=== PATIENT | female | born 1995 | race Caucasian/White ===

== ENCOUNTER 2018-06-14 05:05 | Emergency (ER) | payer OTHER ==
[2018-06-14 05:10] VITALS: BP 125/68
[2018-06-14] MEDS ORDERED: GABAPENTIN 100 MG CAPSULE PO ONE (07:06)
--- NOTE | 2018-06-14 07:10 | ER Document Report ---
ED General - General Chief Complaint: Leg Pain Stated Complaint: LEG KNEE PAIN Time Seen by Provider: 06/14/18 06:36 - HPI Patient complains to provider of: Left leg left knee pain numbness Notes: Patient coming in for the last 4 days left leg pain left knee pain and numbness. Patient is recently to the area from [place]. Patient denies any swelling of the leg. Patient states intermittent pain and numbness. Patient states she does have a history of pelvic fracture unaware of the radius fracture states approximately 2 years ago. Patient states since that time continues have pain. Patient denies any recent trauma denies any falls denies any indices. Patient also denies any fever chills nausea by diarrhea. Denies any new physical activity. Patient otherwise resting comfortably denies any past medical history denies taking medications for pain control. Past Medical History - Social History Smoking Status: Never Smoker Family History: Reviewed & Not Pertinent Patient has suicidal ideation: No Patient has homicidal ideation: No Renal/ Medical History: Denies: Hx Peritoneal Dialysis Review of Systems - Review of Systems Constitutional: No symptoms reported EENT: No symptoms reported Cardiovascular: No symptoms reported Respiratory: No symptoms reported Gastrointestinal: No symptoms reported Genitourinary: No symptoms reported Female Genitourinary: No symptoms reported Musculoskeletal: Other - Left leg pain Skin: No symptoms reported Hematologic/Lymphatic: No symptoms reported Neurological/Psychological: No symptoms reported -: Yes All other systems reviewed and negative Physical Exam - Vital signs Vitals: Temp Pulse Resp BP Pulse Ox 98.0 F 88 18 125/68 100 06/14/18 05:09 06/14/18 05:09 06/14/18 05:09 06/14/18 05:09 06/14/18 05:09 Interpretation: Normal - General General appearance: Appears well, Alert - HEENT Head: Normocephalic, Atraumatic Eyes: Normal Pupils: PERRL - Respiratory Respiratory status: No respiratory distress Chest status: Nontender Breath sounds: Normal Chest palpation: Normal - Cardiovascular Rhythm: Regular Heart sounds: Normal auscultation Murmur: No - Abdominal Inspection: Normal Distension: No distension Bowel sounds: Normal Tenderness: Nontender Organomegaly: No organomegaly - Back Back: Normal, Nontender - Extremities General upper extremity: Normal inspection, Nontender, Normal color, Normal ROM , Normal temperature, Other - Patient able to lift her leg straight in the air from the left side. This was done actively. Deep tendon reflexes are intact bilaterally of the patella. General lower extremity: Normal inspection, Nontender, Normal color, Normal ROM , Normal temperature, Normal weight bearing. No: Tae's sign - Neurological Neuro grossly intact: Yes Cognition: Normal Orientation: AAOx4 Rosa Coma Scale Eye Opening: Spontaneous Rosa Coma Scale Verbal: Oriented Rosa Coma Scale Motor: Obeys Commands Rosa Coma Scale Total: 15 Speech: Normal Motor strength normal: LUE, RUE, LLE, RLE Sensory: Normal - Psychological Associated symptoms: Normal affect, Normal mood - Skin Skin Temperature: Warm Skin Moisture: Dry Skin Color: Normal Course - Re-evaluation Re-evalutation: 06/14/18 14:09 No clear etiology for the patient's symptoms. No traumatic findings. More likely muscle skeletal in nature. Recommended the patient follow-up with primary care provider for specific testing possible MRI or EMG testing. Patient states understanding. Patient agrees Tylenol Motrin also Ultram therapy for back pain. Patient is to return to the ER if any symptoms worsen - Vital Signs Vital signs: Temp Pulse Resp BP Pulse Ox 98.0 F 88 18 125/68 100 06/14/18 05:09 06/14/18 05:09 06/14/18 05:09 06/14/18 05:09 06/14/18 05:09 Discharge - Discharge Clinical Impression: Leg pain Qualifiers: Laterality: left Qualified Code(s): M79.605 - Pain in left leg Disposition: HOME, SELF-CARE Instructions: Family Physicians / Practices, Leg Pain Nonspecific ([facility]), Oral Narcotic Medication ([facility]) Additional Instructions: Your evaluation does not reveal any emergent criteria for your leg pain. I will highly recommend following up with 1 of the family care physicians provided. Do believe he will need some further testing specialized testing such as MRI or EMG to further evaluate your leg pain. Return to ER symptoms worsen or if you develop a fever greater than 101. Prescriptions: Ibuprofen [Motrin 600 mg Tablet] 600 mg PO Q8HP PRN #21 tablet PRN Reason: Gabapentin [Neurontin 100 mg Capsule] 100 mg PO Q12 #60 capsule Tramadol HCl [Ultram 50 mg Tablet] 50 mg PO ASDIR PRN #14 tablet PRN Reason: Referrals: MATTHEW HOWE MD [Primary Care Provider] - Follow up as needed
== END 2018-06-14 07:20 | disposition home or self-care (01) ==
LOC: ER 05:05
DX: M79.605 Pain in left leg (principal); R20.0 Anesthesia of skin
CPT/HCPCS: 99283

== ENCOUNTER 2018-10-10 12:46 | Emergency (ER) | payer OTHER ==
--- NOTE | 2018-10-10 13:00 | ER Document Report ---
ED Medical Screen (RME) - General Chief Complaint: Abdominal Cramping Stated Complaint: FALL/ABDOMINAL PAIN Time Seen by Provider: 10/10/18 12:58 Primary Care Provider: MATTHEW HOWE MD [Primary Care Provider] - Follow up as needed Mode of Arrival: Ambulatory Information source: Patient TRAVEL OUTSIDE OF THE [place] IN LAST 30 DAYS: No - HPI Patient complains to provider of: fall; abd pain Onset: Just prior to arrival - pt. is G1, approx 7 weeks along who fell in the shower earlier this am. Has had some abd pain but no vaginal bleeding - Related Data Allergies/Adverse Reactions: cetirizine [From Zyrtec] Allergy (Verified 10/10/18 12:48) Past Medical History Renal/ Medical History: Denies: Hx Peritoneal Dialysis Physical Exam - Vital signs Vitals: Temp Pulse Resp BP Pulse Ox 98.9 F 95 16 133/73 H 100 10/10/18 12:52 10/10/18 12:52 10/10/18 12:52 10/10/18 12:52 10/10/18 12:52 Course - Vital Signs Vital signs: Temp Pulse Resp BP Pulse Ox 98.9 F 95 16 133/73 H 100 10/10/18 12:52 10/10/18 12:52 10/10/18 12:52 10/10/18 12:52 10/10/18 12:52 Doctor's Discharge - Discharge Referrals: MATTHEW HOWE MD [Primary Care Provider] - Follow up as needed
--- NOTE | 2018-10-10 13:47 | RADIOLOGY REPORT (SQ) ---
EXAM DESCRIPTION: U/S OB TRANSVAG W/DOPPLER COMPLETED DATE/TIME: 10/10/2018 1:30 pm REASON FOR STUDY: fall; abd. pain COMPARISON: None. TECHNIQUE: Transvaginal static and realtime grayscale images acquired of the pelvis. Additional tyler cted spectral and color Doppler images recorded. All images stored on PACs. CLINICAL DATES: 6 weeks 4 days LIMITATIONS: None. FINDINGS: FETUS: Single Living intrauterine . ULTRASOUND EGA: 6 weeks 5 days. ULTRASOUND RAMILA: 05/31/2019. EFW: Not applicable less than 20 weeks. CRL: 0.8 cm consistent with gestational age 6 weeks 5 days. FHR: 114 beats per minute. PLACENTA: Not yet developed due to early gestation. UTERUS: The uterus measures 10.4 x 5.3 x 5.9 cm. CERVICAL LENGTH: 3.4 Closed. RIGHT ADNEXA: Right ovary nonvisualized. LEFT ADNEXA: Left ovary measures 2.8 x 2.4 x 2.4 cm. FREE FLUID: None. IMPRESSION: LIVING INTRAUTERINE . EGA 6 weeks 5 days. Trimester of : First - 0 to 13 weeks. TECHNICAL DOCUMENTATION: JOB ID: [id number] [place]-69 2010 [employer]- All Rights Reserved rev Reading location - IP/workstation name: [email or web address]
--- NOTE | 2018-10-10 14:30 | ER Document Report ---
ED General - General Chief Complaint: Abdominal Cramping Stated Complaint: FALL/ABDOMINAL PAIN Time Seen by Provider: 10/10/18 12:58 Primary Care Provider: MATTHEW HOWE MD [NO LOCAL MD] - Follow up as needed Mode of Arrival: Ambulatory Information source: Patient, [facility] Records Notes: Odalis P0 at approx 7 weeks along who fell in the shower earlier this am. States t hat she landed on her buttocks. No head injury, no loss of consciousness. Has had some abd pain but no vaginal bleeding. Upon my exam patient has no abdominal pain. TRAVEL OUTSIDE OF THE [place] IN LAST 30 DAYS: No - HPI Onset: Just prior to arrival Onset/Duration: Sudden Quality of pain: Achy Severity: Mild Pain Level: 1 Associated symptoms: denies: Chest pain, Fever, Nausea, Vomiting, Slow to respond Exacerbated by: Denies Relieved by: Denies Similar symptoms previously: No Recently seen / treated by doctor: No - Related Data Allergies/Adverse Reactions: cetirizine [From [employer]] Allergy (Verified 10/10/18 12:48) Past Medical History - General Information source: Patient - Social History Smoking Status: Never Smoker Frequency of alcohol use: None Drug Abuse: None Lives with: Spouse/Significant other Family History: Reviewed & Not Pertinent Patient has suicidal ideation: No Patient has homicidal ideation: No - Medical History Medical History: Negative Renal/ Medical History: Denies: Hx Peritoneal Dialysis Review of Systems - Review of Systems Notes: REVIEW OF SYSTEMS: CONSTITUTIONAL : Denies fever, chills, or sweats. Denies recent illness. Denies weight loss, recent hospitalizations. EENT: Denies visual changes, eye pain. Denies sore throat, oral lesions, difficulty swallowing. CARDIOVASCULAR: Denies chest pain. Denies palpitations. Denies lower extremity edema. RESPIRATORY: Denies cough. Denies shortness of breath, wheezing. GASTROINTESTINAL: Denies abdominal distention. Denies nausea, vomiting, or diarrhea. Denies blood in vomitus, stools, or per rectum. Denies black, tarry stools. Denies constipation. GENITOURINARY: Denies difficulty urinating, painful urination, frequency, blood in urine, or vaginal discharge. MUSCULOSKELETAL: Denies neck pain or stiffness. Denies joint pain or swelling. SKIN: Denies rash, lesions or sores. HEMATOLOGIC : Denies easy bruising or bleeding. LYMPHATIC: Denies swollen glands. NEUROLOGICAL: Denies confusion or altered mental status. Denies loss of consciousness. Denies dizziness or lightheadedness. Denies headache. Denies weakness or paralysis. Denies problems difficulty with ambulation, slurred speech. Denies sensory loss, numbness, or tingling. Denies seizures. PSYCHIATRIC: Denies anxiety or stress. Denies depression, suicidal ideation, or homicidal ideation. Denies visual or auditory hallucinations. Physical Exam - Vital signs Vitals: Temp Pulse Resp BP Pulse Ox 98.9 F 95 16 133/73 H 100 10/10/18 12:52 10/10/18 12:52 10/10/18 12:52 10/10/18 12:52 10/10/18 12:52 - Notes Notes: PHYSICAL EXAMINATION: GENERAL: Well-appearing, well-nourished and in no acute distress. HEAD: Atraumatic, normocephalic. EYES: Pupils equal round and reactive to light, extraocular movements intact, conjunctiva are normal. ENT: Nares patent, oropharynx clear without exudates. Moist mucous membranes. NECK: Normal range of motion, supple without lymphadenopathy LUNGS: Breath sounds clear to auscultation bilaterally and equal. No wheezes rales or rhonchi. HEART: Regular rate and rhythm without murmurs ABDOMEN: Soft, nontender, nondistended abdomen. No guarding, no rebound. No masses appreciated. Female : Pelvic exam; External genitalia unremarkable. Speculum exam with no discharge. Vaginal wall unremarkable. Os closed. No cervical motion tenderness. No adnexal tenderness or masses appreciated. No vaginal bleeding Musculoskeletal: Normal range of motion, no pitting or edema. No cyanosis. NEUROLOGICAL: Cranial nerves grossly intact. Normal speech, normal gait. Normal sensory, motor exams PSYCH: Normal mood, normal affect. SKIN: Warm, Dry, normal turgor, no rashes or lesions noted. Course - Re-evaluation Re-evalutation: 10/11/18 11:04 Laboratory 10/10/18 12:55 Urine Color BIMAL Urine Appearance TURBID Urine pH 5.0 Ur Specific [place] 1.026 Urine Protein NEGATIVE Urine Glucose (UA) NEGATIVE Urine Ketones NEGATIVE Urine Blood NEGATIVE Urine Nitrite NEGATIVE Urine Bilirubin NEGATIVE Urine Urobilinogen NEGATIVE Ur Leukocyte Esterase SMALL H Urine WBC (Auto) 5 Urine RBC (Auto) 2 U Hyaline Cast (Auto) 1 Urine Bacteria (Auto) TRACE Squamous Epi Cells Auto 3 Urine Mucus (Auto) MOD Urine Ascorbic Acid 40 H Transvaginal US 10/10/18 12:58 IMPRESSION: LIVING INTRAUTERINE . EGA 6 weeks 5 days. Trimester of : First - 0 to 13 weeks. Temp Pulse Resp BP Pulse Ox 97.9 F 86 16 117/66 100 10/10/18 16:15 10/10/18 16:15 10/10/18 12:52 10/10/18 16:15 10/10/18 12:52 23-year-old female presents after a slip and fall in the tub where she landed on her buttocks. Patient states that she initially had some mild abdominal pain that has resolved. She denies any vaginal bleeding. She currently complains of some aching pain along her buttocks. Urinalysis shows no blood. Transvaginal ultrasound was obtained which showed a live IUP at approximately 6 weeks and 5 days. Patient was provided a copy of her ultrasound report. She does state that she has an upcoming appointment with OB. She was encouraged to return with any concerns including abdominal pain or vaginal bleeding. Patient was evaluated and treated as appropriate for the patient's presenting symptoms and complaint, with consideration of any critical or life threatening conditions that may be associated with their obtained history and exam as noted above. All results were discussed with patient. Patient provided the opportunity to ask questions, and express concerns. Patient was educated on treatments based on their presumed diagnosis as noted above. At this time we will discharge the patient with return precautions and follow-up recommendations. Verbal discharge instructions given a the bedside. Medication warnings reviewed. Patient is in agreement with this plan and has verbalized understanding of return precautions. After careful consideration I feel that that patient can be safely discharged from the emergency department, they were advised to followup with a primary care physician in 2-3 days. Dictation on this chart was performed using voice recognition software and may result in unintended grammatical, spelling, syntax or errors. - Vital Signs Vital signs: Temp Pulse Resp BP Pulse Ox 97.9 F 86 16 117/66 100 10/10/18 16:15 10/10/18 16:15 10/10/18 12:52 10/10/18 16:15 10/10/18 12:52 - Laboratory Laboratory results interpreted by me: 10/10/18 12:55 Ur Leukocyte Esterase SMALL H Urine Ascorbic Acid 40 H - Diagnostic Test Radiology reviewed: Image reviewed, Reports reviewed Discharge - Discharge Clinical Impression: Abdominal pain and resolved Fall Qualifiers: Encounter type: initial encounter Qualified Code(s): W19.XXXA - Unspecified fall, initial encounter Condition: Good Disposition: HOME, SELF-CARE Instructions: ([facility]) Additional Instructions: You have been seen in the Emergency Department (ED) today following a fall. Your workup today did not reveal any injuries that require you to stay in the hospital. You can expect, though, to be stiff and sore for the next several days. You can take Tylenol 1000 mg every 6 hours as needed for pain. You can apply a hot pack or electric heating pad to the sore areas. You can also use topical "Aspercreme with lidocaine" to sore areas as needed. Please follow up with your primary care doctor as soon as possible regarding today's ED visit and your recent fall. Call your doctor or return to the ED if you develop a sudden or severe headache, confusion, slurred speech, facial droop, weakness or numbness in any arm or leg, extreme fatigue, vomiting more than two times, severe abdominal pain, or other symptoms that concern you. Forms: Elevated Blood Pressure Referrals: MATTHEW HOWE MD [NO LOCAL MD] - Follow up as needed
[2018-10-10 14:58] LABS: APPEARANCE,URINE TURBID; BILIRUBIN,URINE NEGATIVE (NEGATIVE); COLOR,URINE AMBER; GLUCOSE, URINE NEGATIVE (NEGATIVE); KETONES,URINE NEGATIVE (NEGATIVE); LEUKOCYTE ESTERASE,URINE SMALL (NEGATIVE); NITRITE,URINE NEGATIVE (NEGATIVE); PROTEIN,URINE NEGATIVE (NEGATIVE); URINE SPECIFIC GRAVITY 1.026; UROBILINOGEN,URINE NEGATIVE mg/dL (<2.0)
[2018-10-10 16:17] VITALS: BP 117/66
== END 2018-10-10 16:18 | disposition home or self-care (01) ==
LOC: ER 12:46
DX: O26.91 Pregnancy related conditions, unspecified, first trimester (principal); R10.84 Generalized abdominal pain; W18.2XXA Fall in (into) shower or empty bathtub, initial encounter; Z3A.01 Less than 8 weeks gestation of pregnancy
CPT/HCPCS: 76817; 81001; 93976; 99284

== ENCOUNTER 2019-01-28 17:28 | Emergency (ER) | payer OTHER ==
--- NOTE | 2019-01-28 17:53 | ER Document Report ---
ED Medical Screen (RME) - General Chief Complaint: Rib Pain Stated Complaint: FALL/RIB PAIN Time Seen by Provider: 01/28/19 17:49 Primary Care Provider: HARDY OCHOA MD [Primary Care Provider] - Follow up as needed Mode of Arrival: Wheelchair Information source: Patient Notes: 23-year-old female presents to ED for complaint of severe right rib pain with some pain to the left ribs. She states she fell landing on her right side and has severe pain to her right ribs. She states it is extremely painful to take a deep breath. She is 22 weeks . She does have clear lung sounds bilaterally. She states she does not have any nausea or vomiting. She denies any abdominal pain. She states it is extremely painful to move or to breathe. I have greeted and performed a rapid initial assessment of this patient. A comprehensive ED assessment and evaluation of the patient, analysis of test results and completion of medical decision making process will be conducted by an additional ED providers. Dictation of this chart was performed using voice recognition software; therefore, there may be some unintended grammatical errors. TRAVEL OUTSIDE OF THE [place] IN LAST 30 DAYS: No - Related Data Allergies/Adverse Reactions: cetirizine [From Zyrtec] Allergy (Verified 10/10/18 12:48) Past Medical History Renal/ Medical History: Denies: Hx Peritoneal Dialysis Physical Exam - Vital signs Vitals: Temp Pulse Resp BP Pulse Ox 97.8 F 122 H 16 134/72 H 94 01/28/19 17:34 01/28/19 17:34 01/28/19 17:34 01/28/19 17:34 01/28/19 17:34 Course - Vital Signs Vital signs: Temp Pulse Resp BP Pulse Ox 97.8 F 122 H 16 134/72 H 94 01/28/19 17:34 01/28/19 17:34 01/28/19 17:34 01/28/19 17:34 01/28/19 17:34 Doctor's Discharge - Discharge Referrals: HARDY OCHOA MD [Primary Care Provider] - Follow up as needed
--- NOTE | 2019-01-28 18:31 | RADIOLOGY REPORT (SQ) ---
EXAM DESCRIPTION: RIBS RIGHT W/PA CHEST COMPLETED DATE/TIME: 01/28/2019 6:14 pm REASON FOR STUDY: Fall landing on her side audible pop right rib sev COMPARISON: None. TECHNIQUE: Frontal view of the chest and additional views of the right ribs acquired. NUMBER OF VIEWS: Three view. LIMITATIONS: None. FINDINGS: FRONTAL CXR: No pneumothorax. No pleural effusion. Coarse interstitial and patchy airspa ce opacities in both lung bases. RIBS: No displaced rib fractures. No lytic or blastic bony lesions. OTHER: No other significant finding. IMPRESSION: Coarse interstitial and patchy airspace opacities in both lung bases. No rib fracture i dentified. COMMENT: SITE OF TRAUMA/COMPLAINT MARKED/STAMP COMPLETED: NO. TECHNICAL DOCUMENTATION: JOB ID: [id number] [place]-72 2010 [employer]- All Rights Reserved Reading location - IP/workstation name: [email or web address]
[2019-01-28 19:58] LABS: APPEARANCE,URINE CLEAR; BILIRUBIN,URINE NEGATIVE (NEGATIVE); COLOR,URINE STRAW; GLUCOSE, URINE NEGATIVE (NEGATIVE); KETONES,URINE NEGATIVE (NEGATIVE); LEUKOCYTE ESTERASE,URINE NEGATIVE (NEGATIVE); NITRITE,URINE NEGATIVE (NEGATIVE); PROTEIN,URINE NEGATIVE (NEGATIVE); URINE SPECIFIC GRAVITY 1.006; UROBILINOGEN,URINE NEGATIVE mg/dL (<2.0)
[2019-01-28] MEDS ORDERED: LIDOCAINE 5% (700 MG) TRANSDERMAL ADH..PATCH TP ONE (21:49)
[2019-01-28] MEDS ORDERED: ACETAMINOPHEN 325 MG TABLET PO ONE (21:49)
[2019-01-28] MEDS ORDERED: MORPHINE SULFATE IR 15 MG TABLET PO ONE (21:49)
[2019-01-28 22:25] VITALS: BP 120/67
--- NOTE | 2019-01-28 22:53 | ER Document Report ---
ED General - General Chief Complaint: Rib Pain Stated Complaint: FALL/RIB PAIN Time Seen by Provider: 01/28/19 17:49 Primary Care Provider: HARDY OCHOA MD [Primary Care Provider] - Follow up as needed Mode of Arrival: Wheelchair Notes: Patient is a 23-year-old female G1, P0 without chronic medical problems, currently 22 weeks who presents after tripping over her dog's leash and falling down onto her right ribs at approximately 1500 today. Since that time she has had a severe, throbbing, constant pain to both her right and left lower ribs. She has not tried any to improve the pain. Coughing, breathing, or moving worsens the pain. She did not directly strike her abdomen. Denies any vaginal bleeding, continues to feel active movement. Has not contacted her OB regarding today's concerns. No other injuries in the past. Denies trauma or injury to any other location. TRAVEL OUTSIDE OF THE [place] IN LAST 30 DAYS: No - Related Data Allergies/Adverse Reactions: cetirizine [From [employer]] Allergy (Verified 10/10/18 12:48) Past Medical History - General Information source: Patient - Social History Smoking Status: Never Smoker Frequency of alcohol use: None Drug Abuse: None Lives with: Spouse/Significant other Family History: Reviewed & Not Pertinent Patient has suicidal ideation: No Patient has homicidal ideation: No Renal/ Medical History: Denies: Hx Peritoneal Dialysis Review of Systems - Review of Systems Notes: Constitutional: Negative for fever. Eyes: Negative for visual changes. ENT: Negative for facial injury Cardiovascular: Positive for chest injury. Respiratory: Negative for shortness of breath. Gastrointestinal: Negative for abdominal injury. Genitourinary: Negative for genital injury Musculoskeletal: Negative for back injury. Skin: Negative for laceration/abrasions. Neurological: Negative for head injury. Physical Exam - Vital signs Vitals: Temp Pulse Resp BP Pulse Ox 97.8 F 122 H 16 134/72 H 94 01/28/19 17:34 01/28/19 17:34 01/28/19 17:34 01/28/19 17:34 01/28/19 17:34 Interpretation: Tachycardic Notes: PHYSICAL EXAMINATION: GENERAL: Appears uncomfortable but in no acute distress HEAD: Atraumatic, normocephalic. EYES: Pupils equal round and reactive to light, extraocular movements intact, sclera anicteric, conjunctiva are normal. ENT: nares patent, oropharynx clear without exudates. Moderately dry t mucous membranes. NECK: Normal range of motion, supple without lymphadenopathy LUNGS: Breath sounds clear to auscultation bilaterally and equal. No wheezes rales or rhonchi. HEART: Regular tachycardia hm without murmurs Chest wall: Pain on palpation of the bilateral lower ribs without deformity or bruising ABDOMEN: Soft, gravid uterus, nontender, normoactive bowel sounds. No guarding, no rebound. No masses appreciated. EXTREMITIES: Normal range of motion, no pitting or edema. No cyanosis. NEUROLOGICAL: No focal neurological deficits. Moves all extremities spontaneously and on command. PSYCH: Moderately anxious SKIN: Warm, Dry, normal turgor, no rashes or lesions noted. Course - Re-evaluation Re-evalutation: 01/28/19 22:48 Patient presents after falling onto their ribs, complaining of focal pain to the affected area. Patient is currently 22 weeks . Has not had any vaginal bleeding. Outside ultrasound shows normal movement, heart rate at 143. No tachypnea or hypoxemia at time of arrival. Patient is refusing all analgesia except Tylenol. Chest x-ray without evidence of acute fracture, pneumothorax or pulmonary contusion. Has been sent home with incentive spirometry. At this time will discharge with return precautions and follow-up recommendations. Verbal discharge instructions given at the bedside and opportunity for questions given. Medication warnings reviewed. Patient is in agreement with this plan and has verbalized understanding of return precautions and the need for primary care follow-up in the next 24-72 hours. - Vital Signs Vital signs: Temp Pulse Resp BP Pulse Ox 98.4 F 99 16 120/67 94 01/28/19 22:04 01/28/19 22:24 01/28/19 22:24 01/28/19 22:24 01/28/19 17:34 - Diagnostic Test Radiology reviewed: Image reviewed, Reports reviewed Radiology results interpreted by me: 01/28/19 22:48 Chest x-ray: No acute rib fracture or pneumothorax Discharge - Discharge Clinical Impression: Rib injury, Second trimester Fall Qualifiers: Encounter type: initial encounter Qualified Code(s): W19.XXXA - Unspecified fall, initial encounter Condition: Good Disposition: HOME, SELF-CARE Additional Instructions: Your chest wall pain is due to bruising of your ribs. Your baby is doing well on ultrasound today. This pain can last for up to 6 weeks. It is very important that you continue to take purposeful deep breaths. For your pain: Continue to take Tylenol 1000 mg every 6 hours. Apply local lidocaine to the area per bottle instructions. There is a product sold [id number] called "Aspercreme with lidocaine" that you can use for this purpose. Please follow-up with your WORKFORCE SERVICES REPRESENTATIVE or primary care doctor in the next 2-3 days. Return to the emergency department immediately if you develop worsening shortness of breath, increased pain, begin coughing blood, pass out, or have any other symptoms that are worrisome to you. Use the incentive spirometer that has been sent home with you several times per hour until your pain has completely resolved. This will help to keep your lungs open and prevent a pneumonia. Referrals: HARDY OCHOA MD [Primary Care Provider] - Follow up in 3-5 days
== END 2019-01-28 22:50 | disposition home or self-care (01) ==
LOC: ER 17:28
DX: O26.92 Pregnancy related conditions, unspecified, second trimester (principal); S29.9XXA Unspecified injury of thorax, initial encounter; R07.81 Pleurodynia; W01.0XXA Fall on same level from slipping, tripping and stumbling without subsequent striking against object, initial encounter; Z3A.22 22 weeks gestation of pregnancy
CPT/HCPCS: 81001; 99283

== ENCOUNTER 2019-03-20 04:36 | Outpatient (CLI) | payer OTHER ==
[2019-03-20 05:21] LABS: APPEARANCE,URINE CLEAR; BILIRUBIN,URINE NEGATIVE (NEGATIVE); COLOR,URINE STRAW; GLUCOSE, URINE NEGATIVE (NEGATIVE); KETONES,URINE NEGATIVE (NEGATIVE); LEUKOCYTE ESTERASE,URINE TRACE (NEGATIVE); NITRITE,URINE NEGATIVE (NEGATIVE); PROTEIN,URINE NEGATIVE (NEGATIVE); URINE SPECIFIC GRAVITY 1.003; UROBILINOGEN,URINE NEGATIVE mg/dL (<2.0)
[2019-03-20 05:35] LABS: URINE AMPHETAMINES SCREEN NEGATIVE; URINE BARBITURATES SCREEN NEGATIVE; URINE BENZODIAZEPINES SCREEN NEGATIVE; URINE COCAINE SCREEN NEGATIVE; URINE MARIJUANA (THC) SCREEN NEGATIVE; URINE METHADONE SCREEN NEGATIVE; URINE PHENCYCLIDINE SCREEN NEGATIVE
== END 2019-03-20 05:51 | disposition home or self-care (01) ==
LOC: ER 04:36 → LC 05:51
PROVIDERS: ATTEND Obstetrics & Gynecology
PROC: 4A1HXCZ Monitoring of Products of Conception, Cardiac Rate, External Approach (ICD-10-PCS; principal; 2019-03-20)
DX: O47.03 False labor before 37 completed weeks of gestation, third trimester (principal); Z3A.29 29 weeks gestation of pregnancy
CPT/HCPCS: 80307; 81001